=== PATIENT | male | born 1950 | race Caucasian/White ===

== ENCOUNTER 2020-10-07 10:37 | Outpatient (REF) | payer MEDICARE, OTHER, SELFPAY ==
--- NOTE | ~2020-10-07 | US_ITS ---
EXAMINATION: ULTRASOUND GUIDED THYROID FINE-NEEDLE ASPIRATION CLINICAL INFORMATION: Right thyroid nodule COMPARISON: Previous outside thyroid ultrasound 07/11/2020 and images from previous thyroid aspiration October 2018 TECHNIQUE: Procedure and risks and benefits including bleeding and infection were discussed with the patient and informed consent was obtained. The right neck was prepped and draped in the usual sterile fashion. The skin and soft tissues were anesthetized with 1% lidocaine plain. Using ultrasound guidance and a 25-gauge needle, access to the nodule in the inferior right lobe was obtained. 4 22-gauge FNA specimens were obtained. FINDINGS: There is a 0.9 x 1 x 1.2 cm heterogeneous hypoechoic nodule that was targeted for fine-needle aspiration. US/US guided fine needle asp IMPRESSION: Ultrasound-guided right thyroid nodule fine-needle aspiration.
[2020-10-07] MEDS: Lidocaine HCl 1 % MPF 5 ML VIAL SUBCUT (11:07)
== END 2020-10-07 10:38 | disposition home or self-care (01) ==
LOC: HO.US 10:37
PROVIDERS: PCP Internal Medicine Endocrinology, Diabetes & Metabolism; Visit Provider Internal Medicine Endocrinology, Diabetes & Metabolism
DX: E04.1 Nontoxic single thyroid nodule (principal)
CPT/HCPCS: 10005; 88172; 88173; 88177